=== PATIENT | male | born 1945 | race Caucasian/White ===

== ENCOUNTER → 2017-08-20 | Outpatient (CLI) | payer MEDICARE, BC ==
[~2017-08-20] MED LIST: ATIVAN0.5 MG PO; INDERAL; LISINOPRIL2.5 MG PO; PHENERGAN 25 TA25 MG PO; ZOCOR10 MG PO; [UNRECOGNIZED DRUG - OTHER] SC; avadart
== END ==
LOC: COL.RAD 11:57
DX: M96.1 Postlaminectomy syndrome, not elsewhere classified (principal); M48.07 Spinal stenosis, lumbosacral region; M51.26 Other intervertebral disc displacement, lumbar region
CPT/HCPCS: A9585